=== PATIENT | female | born 1970 | race Caucasian/White ===

== ENCOUNTER → 2017-11-13 | Outpatient (CLI) | payer MEDICAID ==
--- NOTE | 2017-11-13 14:25 | MRI ---
MR right shoulder without contrast Indication: Right shoulder pain. History of cervical cancer. Technique: Multiplanar multi sequence imaging through the right shoulder without contrast Findings: There is patchy marrow signal abnormality in the humeral neck, with glenohumeral joint dege nerative change. There is subchondral edema and subchondral fracture of the anterior superior articul ar humeral surface, favoring osteonecrosis. The high signal in the humeral neck could represent a bon e infarct and could be acutely painful. Underlying lesion is not completely excluded. There is diffuse fraying and tearing of the glenoid labrum, with minimal intact labrum remaining. Type 2 acromion with AC joint degenerative change noted. No marked muscle belly atrophy seen. Neurova scular structures appear normal. There is supraspinatus and infraspinatus tendinosis with partial thi ckness tear of the supraspinatus anteriorly at the insertion, possibly bursal sided see coronal image s 6 through 8. Tendinosis and minimal thinning of the otherwise intact infraspinatus tendon noted. Mario bscapularis is intact. Small subacromial/subdeltoid bursitis noted small joint effusion seen. Glenohu meral cartilage loss noted. Intraarticular biceps is somewhat high in signal but shows intact fibers suggesting partial tearing and/or tendinosis. Impression: 1. Subchondral fracture of the superior articular humeral head favors osteonecrosis. There is acute a ppearing edema and acute subchondral fracture is possible given regularity of the articular subchondr al bone. 2. Focal edema in the humeral neck without fracture or well-defined lesion could reflect a bone infar ct. However, given history of cervical cancer, follow-up with contrast-enhanced imaging is recommende d. 3. Diffuse glenoid labrum fraying and tearing with glenohumeral degenerative change. 4. Partial-thickness tear at the footprint of the supraspinatus, tendinosis of the infraspinatus and partial tear and/or tendinosis of the intra-articular biceps. Reported By:
== END ==
LOC: RAD 10:58
PROVIDERS: ATTEND Family Medicine
DX: M12.811 Other specific arthropathies, not elsewhere classified, right shoulder (principal)
CPT/HCPCS: 73221

== ENCOUNTER → 2017-12-12 | Outpatient (CLI) | payer MEDICAID ==
--- NOTE | 2017-12-12 13:00 | NM ---
HISTORY: Right humerus aseptic necrosis. Study: Nuclear medicine whole-body bone scan Comparison: MRI right shoulder 11/13/2017 Technique: Whole body bone scintigraphy was performed in the anterior and posterior projection after the intravenous administration of 25.4 mCi of technetium labeled MDP. Findings: There is asymmetrically increased radiotracer uptake within the right humeral head. There is no signi ficantly increased uptake within the humeral neck, in the region of abnormal marrow signal on the MRI . There is also evidence of previous right knee arthroplasty with increased tracer uptake about the a rthroplasty hardware. Small focus of mildly increased uptake is noted along the costochondral junction of a lower right rib . Normal renal uptake and excretion of tracer is noted. IMPRESSION: 1. Asymmetrically increased uptake within the right humeral head, in keeping with subchondral fractur e noted on recent MRI. There is no abnormal uptake within the humeral neck. 2. Increased uptake about the right knee arthroplasty is nonspecific. This could be postsurgical if t he surgery was fairly recent, although other considerations include hardware loosening and infection in the absence of recent surgery. Correlate with history and radiographs, as indicated. 3. Mildly increased focal uptake at the costochondral junction of a lower right-sided rib. Correlate for pain and/or injury in this region. Consider CT for further evaluation, if indicated, given histor y of cervical cancer, as malignant lesion is not excluded. Reported By:
== END ==
LOC: RAD 09:17
PROVIDERS: ATTEND Orthopaedic Surgery
DX: M87.021 Idiopathic aseptic necrosis of right humerus (principal)
CPT/HCPCS: 78306; A9503

== ENCOUNTER → 2017-12-14 | Outpatient (CLI) | payer MEDICAID ==
--- NOTE | 2017-12-14 17:23 | MRI ---
MR right shoulder with and without contrast Indication: Osteonecrosis of the right humerus. Comparison: 11/13/2017 MR and 12/12/2017 bone scan Technique: Multiplanar multi sequence imaging through the right shoulder before and after IV contrast . Findings: Subchondral fracture of the humeral head and the anterior superior surface is again noted, similar in appearance to the prior MRI. Joint effusion and bone marrow edema adjacent to the fracture again noted. The joint effusion has decreased from the prior and now demonstrates. Supraspinatus tendinosis with mild bursal surface fraying of the anterior footprint of the supraspina tus again suggested, unchanged from the prior. Mild tendinosis and articular surface fraying of the i nfraspinatus noted. Subscapularis is intact. High signal in the intra-articular biceps tendon is note d. Glenohumeral joint degenerative change and cartilage loss is noted. Chronic fraying of the glenoid labrum is seen. Trace subacromial/subdeltoid bursal fluid noted. AC joint DJD noted. Persistent high signal in the humeral neck is probably bone infarct or red marrow, without convincing mass identifie d. No marked low signal on T1 weighted imaging seen. Also the bone scan recently performed does not s how marked uptake at the humeral neck. After contrast, there is only patchy enhancement at the angel l neck suggesting red marrow. There is enhancement of the subchondral fracture. Impression: 1. Osteonecrosis of the humeral head with edema, and minimal change from the prior subchondral fractu re is present. 2. Rotator cuff tendinosis and small bursal surface fraying at the supraspinatus noted. Tendinosis or partial tear of the intra-articular biceps again noted. Diffuse glenoid labrum fraying and degenerat jonny changes again noted. 3. No mass in the humeral neck convincingly demonstrated. This probably reflects bone infarct or focu s of red marrow Reported By:
== END | disposition home or self-care (01) | DRG 554 ==
LOC: RAD 13:41
PROVIDERS: ATTEND Orthopaedic Surgery
DX: M87.021 Idiopathic aseptic necrosis of right humerus (principal); M87.821 Other osteonecrosis, right humerus
CPT/HCPCS: 73223